=== PATIENT | male | born 1970 | race Caucasian/White ===

== ENCOUNTER 2017-01-30 05:07 | Emergency (ER) | payer BC ==
[~2017-01-30] VITALS: Ht 182.9 cm; Wt 72.7 kg
[~2017-01-30 05:07] MED LIST: ACIPHEX20 MG PO; COLACE1 SUP RC; DILAUDID 2MG TAB2 MG PO; DILAUDID 4MG TAB4 MG PO; METAMUCIL1 PDR PO; NO HOME MEDICATIONS; PERCOCET 325 MG1 TAB PO; PHENERGAN 25 TA25 MG PO; PHENERGAN25 MG RC; ZOFRAN 4MG T4 MG/TAB PO
[2017-01-30 05:10] VITALS: BP 145/82; PULSE 58; TEMP 97.5
[2017-01-30] MEDS ORDERED: ULTRAM 50MG TAB50 MG PO (05:32)
== END 2017-01-30 06:05 | disposition home or self-care (01) ==
LOC: COL.ER 05:07
DX: K08.89 Other specified disorders of teeth and supporting structures (principal)

== ENCOUNTER 2019-08-18 15:30 | Emergency (ER) | payer BC ==
[~2019-08-18 15:30] MED LIST changes: +ULTRAM 50MG TAB50 MG PO
== END 2019-08-18 15:46 | disposition left against medical advice (07) ==
LOC: COL.ER 15:30
DX: Z72.89 Other problems related to lifestyle (principal)

== ENCOUNTER 2021-10-22 19:04 | Emergency (ER) | payer BC ==
[~2021-10-22] VITALS: Ht 182.9 cm; Wt 68.2 kg
[2021-10-22 19:11] VITALS: TEMP 98.6
[2021-10-22 19:26] LABS: HEMATOCRIT 51.5 % (42.0-52.0); MEAN CELL VOLUME 84 fl (80.0-100.0); MEAN CORPUSCULAR HEMOGLOBIN 30 pg (27-31); MEAN CORPUSCULAR HGB CONC 36 g/dl (33.0-37.0); MEAN PLATELET VOLUME 9.8 fl (7.4-10.4); PLATELET COUNT 335 K/mm3 (130-400); RED BLOOD COUNT 6.12 M/mm3 (4.20-5.60); REDCELL DISTRIBUTION WIDTH-CV 13.4 % (11.5-14.5)
[2021-10-22 19:28] LABS: HEMOGLOBIN 18.5 g/dl (13.5-18.0)
[2021-10-22 19:34] LABS: PROTHROMBIN TIME 11.1 SECONDS (9.7-12.8)
[2021-10-22 19:36] LABS: PARTIAL THROMBOPLASTIN TIME 35.1 SECONDS (26.0-37.0)
[2021-10-22 19:51] LABS: LYMPHOCYTE 32 % (20.0-51.0); NEUTROPHILS 51 % (42.0-75.2)
[2021-10-22 19:55] LABS: ALANINE AMINOTRANSFERASE 29 U/L (0-55); ALBUMIN 5.2 gm/dL (3.5-5.0); ALKALINE PHOSPHATASE 110 U/L (40-150); ANION GAP 17 mmol/L (7-16); AST,SGOT 24 U/L (5-34); BILIRUBIN,TOTAL 0.7 mg/dL (0.2-1.2); BLOOD UREA NITROGEN 22 mg/dL (8-26); CALCIUM 10.5 mg/dL (8.4-10.2); CARBON DIOXIDE 21 mmol/L (22-29); CHLORIDE 98 mmol/L (98-107); CREATININE, serum 2.81 mg/dL (0.72-1.25); GLUCOSE 133 mg/dL (70-99); POTASSIUM 3.4 mmol/L (3.5-4.5); SODIUM 136 mmol/L (136-145); TOTAL PROTEIN 8.9 gm/dL (6.2-8.1)
[2021-10-22 20:05] LABS: TROPONIN-I < 0.010 ng/mL (0.00-0.033)
[2021-10-22 21:37] VITALS: BP 136/96; PULSE 85
== END 2021-10-22 21:30 | disposition home or self-care (01) ==
LOC: COL.ER 19:04
PROVIDERS: Family Medicine
DX: R11.15 Cyclical vomiting syndrome unrelated to migraine (principal); E86.0 Dehydration; R00.0 Tachycardia, unspecified; E87.6 Hypokalemia; R79.89 Other specified abnormal findings of blood chemistry; D64.9 Anemia, unspecified; F17.210 Nicotine dependence, cigarettes, uncomplicated
CPT/HCPCS: C9113; J0780; J3480; J7030; J7120

== ENCOUNTER 2022-01-07 04:09 | Emergency (ER) | payer SELFPAY ==
[~2022-01-07] VITALS: Ht 182.9 cm; Wt 72.7 kg
[2022-01-07 04:12] VITALS: BP 142/85; PULSE 68; TEMP 97.4
== END 2022-01-07 04:43 | disposition home or self-care (01) ==
LOC: COL.ER 04:09
DX: K02.9 Dental caries, unspecified (principal); F17.200 Nicotine dependence, unspecified, uncomplicated